=== PATIENT | female | born 1990 | race African-American/Black ===

== ENCOUNTER 2017-05-15 19:34 | Emergency (ER) | payer SELFPAY ==
[2017-05-15 19:55] LABS: URINE HCG POC HCG POSITIVE (Negative)
[2017-05-15 20:15] LABS: BILIRUBIN,URINE NEGATIVE (NEG); CLARITY,URINE CLEAR; COLOR,URINE YELLOW; GLUCOSE,URINE NEGATIVE (NEG); NITRITE,URINE NEGATIVE (NEG); PH,URINE 5.5; PROTEIN,URINE NEGATIVE (NEG-TRACE); UROBILINOGEN,URINE 0.2 mg/dL (0.2 mg/dL)
[2017-05-15 20:27] LABS: BACTERIA,URINE 0 /HPF (0-FEW); SQUAMOUS EPITHELIAL CELL,UR OCC /LPF; WBC,URINE OCC /HPF (0-4)
== END 2017-05-15 20:55 | disposition left against medical advice (07) ==
LOC: ER 19:34
DX: O26.891 Other specified pregnancy related conditions, first trimester (principal); R10.9 Unspecified abdominal pain; Z3A.01 Less than 8 weeks gestation of pregnancy
CPT/HCPCS: 36415; 81001; 81025; 99283